=== PATIENT | male | born 1965 | race Caucasian/White ===

== ENCOUNTER 2019-09-02 12:03 | Outpatient (CLI) | payer OTHER, SELFPAY | END 2019-09-02 12:04 | disposition home or self-care (01) | LOC: CHSIMG 12:07 | PROVIDERS: PCP Internal Medicine; Visit Provider Specialist | DX: Z98.890 Other specified postprocedural states (principal) | CPT/HCPCS: 96375; C8929 ==

== ENCOUNTER 2020-02-17 08:26 | Outpatient (CLI) | payer OTHER, SELFPAY ==
[2020-02-17 08:35] LABS: Basophils Absolute Auto 0.07 K/mm3 (0.00-0.10); Basophils Percent Auto 0.7 % (0.0-1.0); Eosinophils Absolute Auto 0.34 K/mm3 (0.02-0.50); Eosinophils Percent Auto 3.2 % (1.0-6.0); Hematocrit 43.2 % (40.0-54.0); Hemoglobin 14.3 g/dL (14.0-18.0); Immature Granulocyte Absolute 0.04 K/mm3 (0.00-0.00); Immature Granulocyte Percent A 0.4 % (0.0-0.0); Lymphocytes Absolute Auto 3.21 K/mm3 (1.10-4.50); Lymphocytes Percent Auto 29.9 % (18.0-42.0); Mean Corpuscular HGB Conc 33.1 g/dL (32.0-36.0); Mean Corpuscular Hemoglobin 29.2 pg (27.0-31.0); Mean Corpuscular Volume 88.3 fL (78.0-102.0); Mean Platelet Volume 10.2 fl (8.7-11.0); Monocytes Absolute Auto 0.65 K/mm3 (0.10-0.90); Monocytes Percent Auto 6.1 % (2.0-11.0); Neutrophils Absolute Auto 6.4 K/mm3 (1.7-7.2); Neutrophils Percent Auto 59.7 % (50.0-70.0); Platelet Count Result 276 K/mm3 (150-420); Red Blood Count 4.89 M/mm3 (4.70-6.10); Red Cell Distribution Width 14.2 % (11.6-14.4); White Blood Count 10.7 K/mm3 (4.8-10.8)
[2020-02-17 10:07] LABS: Anion Gap 9 mmol/L (8-16); Blood Urea Nitrogen 12 mg/dL (7-18); Calcium 8.8 mg/dL (8.5-10.1); Carbon Dioxide 29 mmol/L (21-32); Chloride 103 mmol/L (98-108); Cholesterol 202 mg/dL (0-200); Estimated Glomerular Filt Rate > 60; Glucose 95 mg/dL (70-99); HDL Direct 41 mg/dL (40-60); LDL Cholesterol Calculated 138 mg/dL (<130); Osmolality Calculated 291 mOsm/kg (285-295); Sodium 141 mmol/L (136-145); Triglycerides 117 mg/dL (0-150)
== END 2020-02-17 08:27 | disposition home or self-care (01) ==
PROVIDERS: PCP Internal Medicine; Visit Provider Specialist
DX: E78.5 Hyperlipidemia, unspecified (principal); I10 Essential (primary) hypertension
CPT/HCPCS: 36415; 80048; 80061; 85025

== ENCOUNTER 2020-12-12 08:00 | Outpatient (CLI) | payer BC, SELFPAY ==
--- NOTE | ~2020-12-12 | CT_ITS ---
EXAMINATION: CT abdomen pelvis wo/w con DATE: 12/12/2020 08:35 INDICATION: Chronic bladder TECHNIQUE: Computed tomography (CT) of the abdomen and pelvis was performed without and with 130 cc O mnipaque 350 intravenous contrast. The dose-length product was 871.50 mGy-cm. Automated exposure cont rol and iterative reconstruction technique were employed. COMPARISON: CT dated 01/07/2016. FINDINGS: Lung bases are unremarkable. Heart size normal. No significant pleural or pericardial effus ion. No No significant vascular abnormality. No lymphadenopathy. There is high density debris in the stomach dependently. The liver, spleen, pancreas, adrenal glands and kidneys are unremarkable. Ureters are no rmal in course and caliber. There is diffuse bladder wall thickening. No renal stones. There is depen dent high density material in the bladder precontrast administration which may represent small stones . Gallbladder is present. No lymphadenopathy. Nonobstructive bowel gas pattern. No abnormal pelvic ma sses or fluid collections. No free air or free fluid. IMPRESSION: 1. High density material dependent aspect the bladder on precontrast sequence, possibly small stones. 2: Diffuse bladder wall thickening suspicious for chronic cystitis. Reviewed, dictated and finalized at location A.
== END 2020-12-12 08:01 | disposition home or self-care (01) ==
LOC: ANHIMG 08:03
PROVIDERS: PCP Internal Medicine; Visit Provider Urology
DX: R10.9 Unspecified abdominal pain (principal)
CPT/HCPCS: 74178; Q9967

== ENCOUNTER 2021-10-19 15:17 | Outpatient (CLI) | payer BC, SELFPAY ==
--- NOTE | ~2021-10-19 | CT_ITS ---
EXAMINATION:CT lung screening DATE: 10/19/2021 15:31 INDICATION: Personal history of tobacco dependence. Current smoker with 30 pack year history. TECHNIQUE: Computed tomography (CT) of the chest was performed without intravenous contrast. Automate d exposure control and iterative reconstruction technique were employed. The dose-length product (DLP ) was 186.97 mGy-cm. COMPARISON: Chest CT 12/31/2015 FINDINGS: There is mild scarring at the lung apices. There is mild emphysema. There is mild atelectas is bilaterally. No pleural effusion. The heart size is normal. There is a closure device of the inter atrial septum. No pericardial effusion. There is mild thoracic spondylosis. There is mild chronic ant erior wedging of multiple vertebral bodies. IMPRESSION: 1. Lung-RADS category 2: Benign appearance or behavior. Continue annual screening with noncontrast lo w-dose chest CT in 12 months. Reviewed, dictated and finalized at location B. IMPRESSION: 1. Lung-RADS category 2: Benign appearance or behavior. Continue annual screeni ng with noncontrast low-dose chest CT in 12 months.
== END 2021-10-19 15:18 | disposition home or self-care (01) ==
LOC: CHSIMG 15:18
PROVIDERS: PCP Internal Medicine; Visit Provider Internal Medicine
DX: Z87.891 Personal history of nicotine dependence (principal)
CPT/HCPCS: 71271

== ENCOUNTER 2022-01-04 00:06 | Day surgery (SDC) | payer BC, SELFPAY ==
[2021-12-16 15:06] VITALS: BMI 28.6
[2022-01-04 09:16] VITALS: BP 108/69; PULSE 77; RESP 18; TEMP 36.6; O2SAT 100
[2022-01-04] MEDS: LACTATED RINGERS 1,000 ML 150 ML IV CONT (09:26)
--- NOTE | 2022-01-04 09:39 | P.PNAN_ITS ---
Anes - Initial Pre Proc Eval Procedure: Operation Date: 01/04/22 10:30 Proposed Procedures p Screening Colonoscopy - Ilya Hernández MD Date/Time: 01/04/22 09:39 Surgeon: Ilya Hernández MD Pre Op Diagnosis: positive cologuard Patient Data Age: 56 Gender: M Height: 1.75 m Weight: 83.5 kg Last Vital Signs Temp 97.8 F 01/04/22 09:16 Pulse 77 01/04/22 09:16 Resp 18 01/04/22 09:16 BP 108/69 01/04/22 09:16 Pulse Ox 100 01/04/22 09:16 O2 Del Method Room Air 01/04/22 09:16 Allergies Allergy/AdvReac Type Severity Reaction Status Date / Time diphenhydramine Allergy Mild HEADACHE. Verified 01/04/22 09:15 Home Medications Medication Instructions Recorded Confirmed Type sodium sul 1.479 gram-potas ch See Rx Instructions PO .COMPLEX 11/18/21 01/04/22 Rx 0.188 gram-magnes sul 0.225 gram #24 tabs tablet (Sutab) Adult Low Dose Aspirin 81 mg PO DAILY 12/16/21 12/16/21 History Adults Multivitamin 1 tab-cap PO DAILY 12/16/21 12/16/21 History atorvastatin 40 mg tablet 1 tablet PO DAILY 12/16/21 12/16/21 History lisinopril 20 mg tablet 1 tablet PO DAILY 12/16/21 12/16/21 History tramadol 50 mg tablet 50 tablet PO PRN PRN Pain 12/16/21 12/16/21 History Patient hx anesthesia problems: none Family hx anesthesia problems: none Results Review: All pre-operative results and documents have been reviewed as part of the pre- operative evaluation. [facility] Social History Social History Smoking packs per day: 1.5 Smoking cigarettes per day: 30.0 Years smoked: 30 Smoking pack-years: 45.00 Smoking status: Current every day smoker Tobacco type: cigarettes Alcohol intake: current Alcohol use details: rarely Substance use: never Living arrangements: with family Spiritual care concerns: No Anes - Eval Final PreProcedure Day of Procedure 01/04/22 09:39 Patient weight: normal Heart: regular rate and rhythm Lungs: clear to auscultation Airway: Mallampati scale class II Neurological: alert and oriented Last oral intake: >/= 8 hours ASA classification: II Emergent: no Anesthetic plan: proceed Anesthesia type and monitoring: general GIVS and standard monitoring Results Review: All pre-operative results and documents have been reviewed as part of the pre- operative evaluation. Informed Consent: The patient's anesthetic plan and its attendant risks and benefits were discussed with the patient/family/POA. Questions were solicited and answers provided to the satisfaction of the patient/family/POA.
--- NOTE | 2022-01-04 09:47 | PM.HPGS ---
History of Present Illness History of Present Illness Consent: Risks, benefits, and alternatives have been discussed and questions answered. Patient agrees to proceed with procedure. Chief complaint: positive cologuard Narrative: Bradford Redmond is a 56 year old male here for first colonoscopy, + cologuard Review of Systems Constitutional: Constitutional: Denies headache(s) and Denies weakness Eyes: Eyes: Denies blurry vision ENT: Reports Normal hearing present, Denies headache(s) and Denies neck pain Cardiovascular: Cardiovascular: Denies chest pain and Denies dyspnea Respiratory: Respiratory: Denies dyspnea Gastrointestinal: Gastrointestinal: Reports no additional gastrointestinal complaints Genitourinary: Genitourinary: Denies dysuria Musculoskeletal: Musculoskeletal: Denies neck pain Integumentary/Breasts: Skin/Breast: Denies dry skin Neurologic: Reports Normal hearing present, Denies headache(s) and Denies weakness Psychiatric: Psychiatric: Denies anxiety Endocrine: Endocrine: Denies change in body appearance Hematologic/Lymphatic: Hematologic/Lymphatic: Denies easy bleeding Allergic/Immunologic: Allergic/Immunologic: Denies urticaria PMFSH Past Medical History Medical History (Updated 01/04/22 @ 09:47 by Ilya Hernández MD) Positive colorectal cancer screening using Cologuard test Social History Social History Smoking packs per day: 1.5 Smoking cigarettes per day: 30.0 Years smoked: 30 Smoking pack-years: 45.00 Smoking status: Current every day smoker Tobacco type: cigarettes Alcohol intake: current Alcohol use details: rarely Substance use: never Living arrangements: with family Spiritual care concerns: No Meds Home Medications and Allergies Home Medications Medication Instructions Recorded Confirmed Type sodium sul 1.479 gram-potas See Rx Instructions PO .COMPLEX 11/18/21 01/04/22 Rx 0.188 gram-magnes sul 0.225 gram #24 tabs tablet (Sutab) Adult Low Dose Aspirin 81 mg PO DAILY 12/16/21 12/16/21 History Adults Multivitamin 1 tab-cap PO DAILY 12/16/21 12/16/21 History atorvastatin 40 mg tablet 1 tablet PO DAILY 12/16/21 12/16/21 History lisinopril 20 mg tablet 1 tablet PO DAILY 12/16/21 12/16/21 History tramadol 50 mg tablet 50 tablet PO PRN PRN Pain 12/16/21 12/16/21 History Allergies Allergy/AdvReac Type Severity Reaction Status Date / Time diphenhydramine Allergy Mild HEADACHE. Verified 01/04/22 09:15 Vital Signs Vital Signs - 24 hr 01/04/22 09:16 Temperature 97.8 F Pulse Rate 77 Respiratory Rate 18 Blood Pressure 108/69 Pulse Oximetry 100 Oxygen Delivery Room Air Exam Const: General: comfortable and no acute distress HENMT: General nose exam: Normal nares present Eyes: General: appearance normal, both eyes and all related structures Neck: Neck: no JVD Resp: Auscultation: clear to auscultation bilaterally Cardio: Rate: regular rate Rhythm: regular rhythm GI: Inspection: non-distended GI Palp: Yes Soft to palpation Skin: General skin exam: normal color Neuro: General: gait normal Speech: normal speech Extrem: General: normal to inspection Psych: Mental Status: mental status grossly normal Assessment and Plan Assessment and plan (1) Positive colorectal cancer screening using Cologuard test: Code(s): R19.5 - Other fecal abnormalities Status: Acute Assessment and Plan: colonoscopy
[2022-01-04 10:15] VITALS: BP 94/57; PULSE 57; RESP 15; O2SAT 100
[2022-01-04 10:25] VITALS: BP 115/86; PULSE 52; RESP 20; O2SAT 100
[2022-01-04 10:35] VITALS: BP 106/75; PULSE 51; RESP 17; O2SAT 100
== END 2022-01-04 10:44 | disposition home or self-care (01) ==
PROVIDERS: PCP Internal Medicine; Visit Provider Internal Medicine Gastroenterology
PROC: 0DJD8ZZ Inspection of Lower Intestinal Tract, Via Natural or Artificial Opening Endoscopic (ICD-10-PCS; CPT 45378; principal; 2022-01-04 10:30)
DX: R19.5 Other fecal abnormalities (principal); D12.3 Benign neoplasm of transverse colon; D12.8 Benign neoplasm of rectum; F17.210 Nicotine dependence, cigarettes, uncomplicated; Z79.82 Long term (current) use of aspirin
CPT/HCPCS: 45385; 88305; J2704; J7120

== ENCOUNTER 2022-07-21 08:00 | Outpatient (CLI) | payer BC, SELFPAY ==
--- NOTE | ~2022-07-21 | CT_ITS ---
EXAMINATION: CT sinus wo con DATE: 07/21/2022 08:24 INDICATION: Chronic sinusitis TECHNIQUE: Computed tomography (CT) of the paranasal sinuses was performed without intravenous contra st. The dose-length product (DLP) was 319.20 mGy-cm. Iterative reconstruction was used. COMPARISON: 11/23/2010 FINDINGS: There is normal development and pneumatization of the paranasal sinuses. There is moderate opacification of the ethmoidal air cells. There is minimal opacification of the frontal and sphenoid sinuses. There is moderate opacification of the maxillary sinuses, left greater than right. There is an old blowout fracture in the medial wall of the right orbit. There are surgical changes in the medi al mercedes of the maxillary sinuses. There are 3 mm of rightward deviation of the nasal septum. Visuali zed soft tissues are unremarkable. IMPRESSION: 1. Pansinusitis, worst in the maxillary sinuses and ethmoidal air cells. Reviewed, dictated and finalized at location L. LER RENTAL CLERK
== END 2022-07-21 08:01 | disposition home or self-care (01) ==
LOC: CHSIMG 08:01
PROVIDERS: PCP Internal Medicine; Visit Provider Otolaryngology
DX: J32.4 Chronic pansinusitis (principal)
CPT/HCPCS: 70486

== ENCOUNTER 2024-07-19 13:54 | Outpatient (CLI) | payer OTHER, SELFPAY ==
--- NOTE | ~2024-07-19 | XR_ITS ---
EXAMINATION: XR abdomen obstructive series DATE: 07/19/2024 14:21 INDICATION: Lower abdomen pain TECHNIQUE: Supine and upright views of the abdomen. FINDINGS: No prior studies for comparison. The visualized lung parenchyma is normal.. There is a nonobstructive bowel gas pattern. Gas and stool are seen throughout the colon to the level of the rectum. There is no free air. Moderate colonic fe get loading. IMPRESSION: 1. No acute abdominal abnormality. Reviewed, dictated and finalized at location A. LLER WORKER
[2024-07-19 14:14] LABS: Hematocrit 43.3 % (40.0-54.0); Hemoglobin 14.1 g/dL (14.0-18.0); Mean Corpuscular HGB Conc 32.6 g/dL (32-36); Mean Corpuscular Hemoglobin 27.9 pg (27.0-31.0); Mean Corpuscular Volume 85.6 fL (78.0-102.0); Platelet Count Result 251 K/mm3 (150-420); Red Blood Count 5.06 M/mm3 (4.70-6.10); Red Cell Distribution Width 12.6 % (11.6-14.4); White Blood Count 7.7 K/mm3 (4.8-10.8)
[2024-07-19 14:30] LABS: Alanine Aminotransferase 19 U/L (16-63); Albumin Level 3.5 g/dL (3.4-5.0); Alkaline Phosphatase 114 U/L (46-116); Anion Gap 10 mmol/L (4-12); Aspartate Amino Transferase 13 U/L (15-37); Bilirubin,Total 0.3 mg/dL (0.00-1.00); Blood Urea Nitrogen 7 mg/dL (7-18); Calcium 8.3 mg/dL (8.5-10.1); Carbon Dioxide 27 mmol/L (21-32); Chloride 104 mmol/L (98-108); Estimated Glomerular Filt Rate > 60; Glucose 101 mg/dL (70-99); Osmolality Calculated 290 mOsm/kg (285-295); Potassium 3.6 mmol/L (3.5-5.1); Sodium 141 mmol/L (136-145); Total Protein 7.4 g/dL (6.4-8.2)
== END 2024-07-19 13:55 | disposition home or self-care (01) ==
LOC: CHSIMG 13:58
PROVIDERS: PCP Internal Medicine; Visit Provider Internal Medicine
DX: R10.9 Unspecified abdominal pain (principal); K59.00 Constipation, unspecified
CPT/HCPCS: 36415; 74019; 80053; 85027

== ENCOUNTER 2024-08-28 08:57 | Outpatient (CLI) | payer OTHER, SELFPAY ==
--- NOTE | ~2024-08-28 | XR_ITS ---
EXAMINATION: XR abdomen/kub 1V DATE: 08/28/2024 09:16 INDICATION: Constipation. TECHNIQUE: A supine view of the abdomen on 2 radiographs was obtained. COMPARISON: Abdomen radiographs 07/19/2024, CT abdomen and pelvis 12/12/2020 FINDINGS: There are no dilated loops of bowel. There is a moderate volume of stool in the colon. Ther e are phleboliths in the pelvis. IMPRESSION: 1. Normal bowel gas pattern. Reviewed, dictated and finalized at location B.
--- OUTSIDE RECORDS SUMMARY | 2024-08-28 09:34 | XMS_ITS | Data Portability ---
Author Organization [facility] [employer], Main Office Address [address] [place] [address] Assessment No assessment recorded. Plan of Treatment Reminders Order Date Submit Date Provider Last Modified By Organization Details Last Modified Time Details Appointments None recorded. Lab None recorded. Referral None recorded. Procedures None recorded. Surgeries endoscopy, nasal/sinus , w/ maxillary antrostomy & tissue removal (SURG) 2022 023 [email or web address] Not available 3 14:33:51 endoscopy, nasal/sinus , with frontal sinus exploration (SURG) 2022 023 [email or web address] Not available 3 14:33:51 endoscopy, nasal/sinus , w/ total ethmoidecto my (SURG) 2022 023 [email or web address] Not available 3 14:33:51 Imaging None recorded. Medication Orders None recorded. Patient TargetsNo targets recorded. Patient Instructions Encounter Date Encounter Id Patient Instructions Last Modified By Organization Details Last Modified Time 09/07/2022 [id number] we discussed the options including observation for the use of antibiotics and sinus surgery. Note is made of the previous right medial orbital wall injury [email or web address] Not available 09/07/2022 11:44:52 Reason for Referral None Reported. Results Created Date Observation Date Name Description Value Unit Range Abnormal Flag Note LastModifiedBy Organization Detail LastModifiedTime 07/21/1907/21/2022 CT, sinus es, w/o contr ast No observ ation record ed. [id number] [facility] [address] [place], [address], 08/18/2022 01:49:11 07/29/1907/21/2022 CT, sinus es, w/o contr ast No observ ation record ed. [id number] [facility] [address] [place], [address], 08/18/2022 01:49:11 Result Notes None recorded. Problems Name Problem SNOMED Code Status Onset Date Resolution Date Notes Provider Name and Address Organization Details Recorded Time Chronic sinusitis 26308271 Active 023 Not Available [facility] 01:48:19 Chronic maxillary sinusitis 72433983 Active 023 Ryan Perea MD [address], [place], [address] , [employer] 3 11:44:00 Chronic ethmoidal sinusitis 08169023 Active 023 Ryan Perea MD [address], [place], [address] , [employer] 3 11:44:10 Chronic frontal sinusitis 15334660 Active 023 Ryan Perea MD [address], [place], [address] , [employer] 3 11:44:22 Problem Notes None recorded. Procedures Surgical History None recorded. Imaging Results Imaging Date Name Status LastModified by Organiz ation Details LastModified Time 07/21/2022 CT, sinuses, w/o contrast completed [id number] [facility] [address] [place], [address], 08/18/2022 01:49:11 07/21/2022 CT, sinuses, w/o contrast completed [id number] [facility] [address] [place], [address], 08/18/2022 01:49:11 Procedure Notes None recorded. Medical Equipment None Reported. Allergies No known drug allergies Medications Name Sig Start Date Stop Date Status Note LastModified by Organization Details LastModified Time atorvastatin 40 mg tablet active Not Available Not Available Not Available lisinopril 20 mg tablet 07/19 completed Not Available Not Available Not Available ciprofloxaci n 500 mg tablet 07/19 completed Not Available Not Available Not Available tramadol 50 mg tablet Take 1 tablet every 6 hours by oral route. active Not Available Not Available No t Available triamcinolon e acetonide 0.1 % topical cream 09/01 completed Not Available Not Available Not Available lisinopril 10 mg tablet active Not Available Not Available Not Available methylpredni solone 4 mg tablets in a dose pack 07/19 completed Not Available Not Available Not Available duloxetine 20 mg capsule,kapil yed release 07/19 completed Not Available Not Available Not Available Sutab 1.479-0.188- 0.225 gram tablet 09/01 completed Not Available Not Available Not Available aspirin 81 mg capsule Take 1 capsule every day by oral route. 2022 active Not Available Not Available Not Avai lable 24HR Allergy-Adrian estion Relief 180 mg-240 mg tablet,exten ded release Take 1 tablet every day by oral route. 2022 active Not Available Not Available Not Avai lable Vitals Date Recorded Body mass index (BMI) Body height Body temperature Body weight Provider Name and Address Organization Details Last Updated DateTime 07/19/2022 28.6 kg/m2 175.26 cm 97 [degF] 34713.92 g Not Available [facility] 08/18/2022 01:47:45 Date Recorded Body height Body mass index (BMI) Body weight Body temperature Provider Name and Address Organization Details Last Updated DateTime 09/07/2022 175.26 cm 29.7 kg/m2 58036.07 g 97.8 [degF] Brigitte Booker CMA [facility] 09/07/2022 11:07:10 Social History Question Answer Notes LastModified by Organizat ion Details LastModified Time Tobacco Smoking Status Current Every Day Smoker Not Available [facility] 08/18/2022 01:47:14 What Is Your Level Of Alcohol Consumption? Occasional [id number] Information not available 08/18/2022 Sex: Unknown Functional Status None recorded. Mental Status None recorded. Family History Nothing Reported. Medical History Condition Response SLEEP APNEA N MRSA N ALLERGIES/HAYFEVER N LUNG DISEASE/DISORDER N HISTORY OF DRUG ABUSE N INSOMNIA N COPD N RADIATION / CHEMOTHERAPY N HIGH CHOLESTEROL / HYPERLIPIDEMIA N HYPERTHYROIDISM N BLOOD DISEASES N EAR OR HEARING PROBLEMS N HYPOTHYROIDISM N SHINGLES N DEPRESSION (INCLUDING POST ) N HAVE YOU BEEN HOSPITALIZED OR SEEN IN E ER IN THE PAST YEAR ? N STROKE/TIA N ULCERS N OBESITY N ANEURYSM N HISTORY WITH COMPLICATIONS WITH ANESTHES IA ? N NO SIGNIFICANT PAST MEDICAL HISTORY N USE OF BLOOD THINNERS N DIABETES, TYPE N PARATHYROID DISEASE N ENT N SEASONAL ALLERGIES N HEARTBURN / REFLUX N HEPATITIS / LIVER DISEASE N SLEEP DISORDER N SEIZURES/EPILEPSY N HEADACHES/MIGRAINES N CHF N PACEMAKER N DIZZINESS N HEART DISEASE/HEART PROBLEMS N AIDS/HIV N FRACTURES N HYPERTENSION Y CANCER: SPECIFY N TOURETTE'S N BLOOD TRANSFUSION N ANESTHESIA COMPLICATIONS N ANEMIA/BLOOD DISORDER N CHRONIC EAR INFECTIONS N AUTOIMMUNE DISEASE N TUBERCULOSIS N Past Encounters Encounter ID Performer Location Encounter Start Date Encounter Closed Date Diagnosis/Indication Diagnosis SNOMED-CT Code Diagnosis ICD10 Code Diagnosis Note [id number] [facility] [place] [address] [place] [address] 07/19/2022 00:00:00 07/19/2022 12:06:51 [id number] Ryan Perea MD [facility] [place] [place] [facility] [place] [address] [place] [address] 09/07/2022 10:35:25 09/07/2022 11:49:37 Chronic maxillary sinusitis 27774757 J32.0 Chronic et hmoidal sinusitis 66860465 J32.2 Chronic fr ontal sinusitis 23878065 J32.1 Health Concerns Section Related Observation LastModified by Organization Detai ls LastModified Time None Recorded Concern Status LastModified by Organization Details LastModified Time None Recorded Advance Directives Directive None Recorded Payers Encounter Date Sequence Insurance Name Policy Number Policy Cotton Covered Member ID Cotton Member ID Guarantor Name 09/07/2022 1 [place] [id number] Bradford Redmond [id number] Bradford Redmond Notes Date Note Type Note Provider Name and Address Organization Details Recorded Time 09/07/2022 text/html the CT scan demonstrates postoperative changes including disruption of the right medial orbital wall. He reports that after his last surgery that he had double vision and a black eye on the right. He was admitted for observation. Otherwise the CT scan reveals pansinusitis. Ryan Perea MD [address] [address], [place], [address], [facility] [employer] [facility] 09/07/2022 11:45:27
--- OUTSIDE RECORDS SUMMARY | 2024-08-28 09:34 | XMS_ITS | Encounter Summary ---
Author Organization [facility] Address [facility] [place] [address] Care Team Providers Care Division Plant Engineer Name Role Phone Alton White MD Primary Care Provider [phone] Sigifredo Cifuentes MD Unavailable UnavailAshwin Gomez MD Unavailable Unavailable Myesha Restrepo APRN, RUNWAY MODEL-C Unavailable [phone] Ryan Perea MD Unavailable [phone] Edelmira Kauffman MD Unavailable Encounter Details Date Type Department Care Team (Late st Contact Info) Description 01/14/2016 Abstract [facility] [address] [place] [phone] Abstract, Doc [facility] Social History Tobacco Use Types Packs/Day Years Used Date Smoking Tobacco: Every Day Sex and Gender Information Value Date Recorded Sex Assigned at Not on file Legal Sex Male 1:31 PM CDT Gender Identity Not on file Sexual Orientation Not on file documented as of this encounter Plan of Treatment Upcoming Encounters Date Type Department Care Team (Late st Contact Info) Description 02/24/2025 3:[address] [place] [address] Edelmira Kauffman MD [address] [place] [address] 03/10/2025 3:00 PM CDT Office Visit [facility] [place] [phone] Edelmira Kauffman MD [address] [place] [address] documented as of this encounter Visit Diagnoses Not on filedocumented in this encounter Care Teams Division Plant Engineer Relationship Specialty Start Date End Date Alton White MD [address] [place] [phone] PCP - General INTERNAL MEDICINE 02/18/16 Sigifredo Cifuentes MD [address] [place] [address] [place] [facility] CARDIOVASCULAR DISEASE 02/18/16 10/11/23 Ashwin Caro MD [address] [place] [address] CARDIOVASCULAR DISEASE 04/25/16 10/11/23 Myesha Restrepo, RETAIL BANKER, RUNWAY MODEL-C [address] [facility] [address] [place] [address] NURSE PRACTITIONER 07/13/16 10/11/23 Ryan Perea MD [address] [place] [address] OTOLARYNGOLOGY 01/27/23 Edelmira Kauffman MD [address] [place] [address] Consulting Physician CARDIOVASCULAR DISEASE 10/12/23 documented as of this encounter
--- OUTSIDE RECORDS SUMMARY | 2024-08-28 09:35 | XMS_ITS | Encounter Summary ---
Author Organization [facility] Address [facility] [place] [address] Care Team Providers Care College Teacher Name Role Phone Alton White MD Primary Care Provider [phone] Sigifredo Cifuentes MD Unavailable UnavailAshwin Gomez MD Unavailable Unavailable Myesha Restrepo APRN, BAR MANAGER-C Unavailable [phone] Ryan Perea MD Unavailable [phone] Edelmira Kauffman MD Unavailable Encounter Details Date Type Department Care Team (Late st Contact Info) Description 02/19/2020 Abstract [facility] [address] [place] [phone] Abstract, Doc [facility] Social History Tobacco Use Types Packs/Day Years Used Date Smoking Tobacco: Every Day Cigarettes Smokeless Tobacco: Never Alcohol Use Standard Drinks/Week Comments No 0 (1 standard drink = 0.6 oz pur e alcohol) Sex and Gender Information Value Date Recorded Sex Assigned at Not on file Legal Sex Male 1:31 PM CDT Gender Identity Not on file Sexual Orientation Not on file Occupation Industry Job Start Date Job End Date Not on file Not on file Not on file Not on file documented as of this encounter Plan of Treatment Upcoming Encounters Date Type Department Care Team (Late st Contact Info) Description 02/24/2025 3:[address] [address] [place] [address] Edelmira Kauffman MD [address] [place] [address] 03/10/2025 3:00 PM CDT Office Visit [facility] [address] [place] [phone] Edelmira Kauffman MD [address] [place] [address] documented as of this encounter Procedures Procedure Name Priority Date/Time Associated Diagnosis Comments LIPID PANEL (OUTSIDE LAB) Routine 02/17/2020 CBC W/DIFF AUTOMATED Routine 02/17/2020 documented in this encounter Results * CBC W/DIFF AUTOMATED (02/17/2020) WBC 10.7 RBC 4.89 HGB 14.3 HCT 43.2 MCV 88.3 MCH 29.2 MCHC 33.1 RDW 14.2 PLT 276 MPV 10.2 NEUTROPHILS % 59.7 LYMPHOCYTES % 29.9 MONOCYTES % 6.1 EOSINOPHILS % 3.2 BASOPHILS % 0.7 ABS. NEUTROPHILS 6.4 ABS. LYMPHOCYTES 3.21 ABS. MONOCYTES 0.65 ABS. BASOPHILS 0.07 02/17/2020 us Doc [facility] Abstract LABORATORY Final Result * LIPID PANEL (OUTSIDE LAB) (02/17/2020) CHOLESTEROL 202 TRIGLYCERIDES 117 HDL 41 LDL (CALCULATED) 138 02/17/2020 us Doc [facility] Abstract LAB-OUTSIDE/ABSTRACTED Final Result documented in this encounter Visit Diagnoses Not on filedocumented in this encounter Care Teams College Teacher Relationship Specialty Start Date End Date Alton White MD [address] [place] [phone] PCP - General INTERNAL MEDICINE 02/18/16 Sigifredo Cifuentes MD [address] [place] [address] [facility] [employer] CARDIOVASCULAR DISEASE 02/18/16 10/11/23 Ashwin Caro MD [address] [place] [address] CARDIOVASCULAR DISEASE 04/25/16 10/11/23 Myesha Restrepo, PHOTOGRAPHIC LITHOGRAPHER, BAR MANAGER-C [address] [facility] [address] [place] [address] NURSE PRACTITIONER 07/13/16 10/11/23 Ryan Perea MD [address] [place] [address] OTOLARYNGOLOGY 01/27/23 Edelmira Kauffman MD [address] [place] [address] Consulting Physician CARDIOVASCULAR DISEASE 10/12/23 documented as of this encounter
--- OUTSIDE RECORDS SUMMARY | 2024-08-28 09:35 | XMS_ITS | Encounter Summary ---
Author Organization [facility] Address [facility] [place] [address] Care Team Providers Care Shrimp Trawler Captain Name Role Phone Alton White MD Primary Care Provider [phone] Sigifredo Cifuentes MD Unavailable Unavailabl Ashwin Mak MD Unavailable Unavailable Myesha Restrepo APRN, WINDOW SYSTEMS ADMINISTRATOR-C Unavailable [phone] Ryan Perea MD Unavailable [phone] Edelmira Kauffman MD Unavailable Encounter Details Date Type Department Care Team (Late st Contact Info) Description 09/02/2017 Abstract [facility] [address] [place] [address] , Generic ConversionMD Social History Tobacco Use Types Packs/Day Years [...] 02/24/2025 3:[address] [place] [address] Edelmira Kauffman MD [address] [place] [address] 03/10/2025 3:00 PM CDT Office Visit [facility] [place] [address] Edelmira Kauffman MD [address] [place], [place] [address] documented as of this encounter Visit Diagnoses Not on filedocumented in this encounter Care Teams Shrimp Trawler Captain Relationship Specialty Start Date End Date Alton White MD [address] [place] [address] PCP - General INTERNAL MEDICINE 02/18/16 Sigifredo Cifuentes MD [address] [place] [address] [employer] Digital Sales Assistant CARDIOVASCULAR DISEASE 02/18/16 10/11/23 Ashwin Caro MD [address] [place] [address] CARDIOVASCULAR DISEASE 04/25/16 10/11/23 Myesha Restrepo, NENA, WINDOW SYSTEMS ADMINISTRATOR-C [address] [facility] [address] [place] [address] NURSE PRACTITIONER 07/13/16 10/11/23 Ryan Perea MD [address] [place] [address] OTOLARYNGOLOGY 01/27/23 Edelmira Kauffman MD [address] [place] [address] Consulting Physician CARDIOVASCULAR DISEASE 10/12/23 documented as of this encounter
== END 2024-08-28 08:58 | disposition home or self-care (01) ==
LOC: CHSIMG 08:58
PROVIDERS: PCP Internal Medicine; Visit Provider Nurse Practitioner Family
DX: K59.00 Constipation, unspecified (principal)
CPT/HCPCS: 74018

== ENCOUNTER 2024-09-05 08:31 | Outpatient (CLI) | payer OTHER, SELFPAY ==
--- NOTE | ~2024-09-05 | CT_ITS ---
CT Scan of the Chest without Contrast: Clinical Indication: Lung cancer screening, nicotine dependence Technique: Contiguous sections were acquired throughout the chest without intravenous contrast. Dose reduction technique was used on this scan by utilizing automated exposure control and iterative recon struction technique. The dose-length product (DLP) was 95.83 mGy-cm. COMPARISON: 10/19/2021 Findings: There is no evidence of any significant mediastinal, hilar or axillary lymphadenopathy. The mediastin al soft tissues appear normal. There is no evidence of pleural or pericardial effusion. There is mild emphysema with mild biapical scarring. No pulmonary nodule evident. Images through the upper abdomen reveal no abnormalities. Impression: Lung RADS 1: Negative. 12 month follow-up screening CT advised. Reviewed, dictated and finalized at location . Impression: Lung RADS 1: Negative. 12 month follow-up screening CT advised.
--- OUTSIDE RECORDS SUMMARY | 2024-09-05 08:38 | XMS_ITS | Clinical Summary ---
Author Organization [facility] Address [facility] [place] [address] Care Team Providers Care Checker Cashier Name Role Phone Alton White MD Primary Care Provider [phone] Ryan Perea MD Unavailable [phone] Edelmira Kauffman MD Unavailable Allergies Active Allergy Reactions Criticality Noted Date Comments Pravastatin Dizziness 01/14/2016 Medications traMADol 50 MG tablet Take 1 tablet (50 mg total) by mouth 4 (four) times daily. Active fexofenadine (ZACK) 180 MG tablet Take 1 tablet (180 mg total) by mouth daily. Active aspirin EC (ECOTRIN) 81 MG tablet Take 1 tablet (81 mg total) by mouth daily. Active atorvastatin (LIPITOR) 40 MG tablet TAKE 1 TABLET (40 MG TOTAL) BY MOUTH NIGHTLY AT BEDTIME. 90 tablet 3 01/19/2023 Active Active Problems Problem Noted Date Diagnosed Date Nonrheumatic aortic valve insufficiency 03/02/20 20 Hypertension 03/02/2020 Status post device closure of ASD 06/02/2016 Current smoker 06/02/2016 Dyspnea on exertion 04/25/2016 ASD (atrial septal defect) ([facility]) 03/19/2016 Hyperlipidemia 03/19/2016 Family History Medical History Relation Comments Cancer Father Stroke Maternal Grandmother Stroke Mother Relation Status Comments Father Lung cancer Maternal Grandfather Maternal Grandmother Mother Alive HTN, arthritis Paternal Grandfather Paternal Grandmother Sister Alive Social History Tobacco Use Types Packs/Day Years Used Date Smoking Tobacco: Every Day Cigarettes Smokeless Tobacco: Never Tobacco Cessation:Ready to Q uit: Not Asked; Counseling Given: Not Answered Alcohol Use Standard Drinks/Week Comments No 0 [...] file Not on file Not on file Last Filed Vital Signs Vital Sign Reading Time Taken Comments Blood Pressure 136/84 02/09/2024 1:55 PM CDT Pulse 63 02/09/2024 1:55 PM CDT Temperature - - Respiratory Rate 16 02/09/2024 1:55 PM CDT Oxygen Saturation 100% 02/09/2024 1:55 PM CDT Inhaled Oxygen Concentration - - Weight 83.9 kg (185 lb) 02/09/2024 1:55 PM CDT Height 180.3 cm (5' 11 ) 02/09/2024 1:55 PM CDT Body Mass Index 25.8 02/09/2024 1:55 PM CDT Plan of Treatment Upcoming Encounters Date Type Department Care Team (Late st Contact Info) Description 02/24/2025 3:00 PM CDT Appointment [facility] [place] [address] Edelmira Kauffman MD [address] [place], [place] [id number] 03/10/2025 3:00 PM CDT Office Visit [facility] [address] [place] [address] Edelmira Kauffman MD [address] [place] [address] Health Maintenance Due Date Last Done Comments Colorectal Cancer Screening Colonoscopy (10 Years) 1967 Annual Physical 09/10/1970 Pneumococcal Vaccine: Pediat rics (0 to 5 Years) and At-Risk Patients (6 to 64 Years) (1 of 2 - PCV) 09/10/1973 Hepatitis C 09/10/1985 DTaP, Tdap and Td Vaccines ( 1 - Tdap) 09/10/1986 Hepatitis B Vaccines (1 of 3 - 19+ 3-dose series) 09/10/1986 Zoster Vaccines (1 of 2) 09/10/2017 COVID-19 Vaccine (1 - 2023-2 5 season) 2024 Influenza Adult (#1) 2024 Meningococcal B Vaccine Aged Out No l onger eligible based on patient's age to complete this topic Meningococcal Vaccine Aged Out No mary kay ted eligible based on patient's age to complete this topic RSV Immunizations Under 20 Months Aged Out No longer eligible based on patient's age to complete this topic Insurance [facility] AETNA Care Teams Checker Cashier Relationship Specialty Start Date End Date Alton White MD [address] [place] [address] PCP - General INTERNAL MEDICINE 02/18/16 Ryan Perea MD [address] [place] [address] OTOLARYNGOLOGY 01/27/23 Edelmira Kauffman MD [address] [place], [place] [address] Consulting Physician CARDIOVASCULAR DISEASE 10/12/23
--- OUTSIDE RECORDS SUMMARY | 2024-09-05 08:38 | XMS_ITS | Data Portability ---
Author Organization [facility], Main Office Address [address] [place] [address] Assessment No assessment recorded. Plan of Treatment [...] By Organization Details Last Modified Time 09/07/2022 [id number] we discussed the options including observation for [...] contr ast No observ ation record ed. [id number] [facility] [address] [place], [address], 08/18/2022 01:49:11 07/29/1907/21/2022 CT, sinus es, w/o contr ast No observ ation record ed. [id number] [facility] [address] [place], [address], 08/18/2022 01:49:11 Result Notes None recorded. Problems Name Problem SNOMED Code Status Onset Date Resolution Date Notes Provider Name and Address Organization Details Recorded Time Chronic sinusitis 47998434 Active 023 Not Available [facility] 3 01:48:19 Chronic maxillary sinusitis 68949025 Active 023 Ryan Perea MD [address], [place], [address] , [facility] 3 11:44:00 Chronic ethmoidal sinusitis 06590412 Active 023 Ryan Perea MD [address], [place], [address] , [facility] 3 11:44:10 Chronic frontal sinusitis 93016750 Active 023 Ryan Perea MD [address], [place], [address] , [facility] 3 11:44:22 Problem Notes None recorded. Procedures Surgical History None recorded. Imaging Results Imaging Date Name Status LastModified by Organiz ation Details LastModified Time 07/21/2022 CT, sinuses, w/o contrast completed [id number] [facility] [address] [place], [address], 08/18/2022 01:49:11 07/21/2022 CT, sinuses, w/o contrast completed [id number] [facility] [address] [place], [address], 08/18/2022 01:49:11 Procedure Notes None recorded. Medical [...] 07/19/2022 28.6 kg/m2 175.26 cm 97 [degF] 15206.92 g Not Available [facility] 08/18/2022 01:47:45 Date Recorded Body height Body mass index (BMI) Body weight Body temperature Provider Name and Address Organization Details Last Updated DateTime 09/07/2022 175.26 cm 29.7 kg/m2 57629.07 g 97.8 [degF] Briigtte Booker CMA [place] [facility] 09/07/2022 11:07:10 Social History Question Answer Notes LastModified by Organizat ion Details LastModified Time Tobacco Smoking Status Current Every Day Smoker Not Available [facility] 08/18/2022 01:47:14 What Is Your Level Of Alcohol Consumption? Occasional [id number] Information not available 08/18/2022 Sex: Unknown [...] SNOMED-CT Code Diagnosis ICD10 Code Diagnosis Note [id number] [facility] [place] [address] [place] [address] 07/19/2022 00:00:00 07/19/2022 12:06:51 [id number] Ryan Perea MD [facility] [place] [address] [place] [address] 09/07/2022 10:35:25 09/07/2022 11:49:37 Chronic maxillary sinusitis 70334708 J32.0 Chronic et hmoidal sinusitis 18130803 J32.2 Chronic fr ontal sinusitis 88970103 J32.1 Health Concerns Section Related Observation LastModified by Organization Detai ls LastModified Time None Recorded Concern Status LastModified by Organization Details LastModified Time None Recorded Advance Directives Directive None Recorded Payers Encounter Date Sequence Insurance Name Policy Number Policy Cotton Covered Member ID Cotton Member ID Guarantor Name 09/07/2022 1 [place] [id number] Bradford Redmond [id number] Bradford Redmond Notes Date Note Type [...] scan reveals pansinusitis. Ryan Perea MD [address] [address], [place], [address], [facility] [place] [employer] [facility] 09/07/2022 11:45:27
--- OUTSIDE RECORDS SUMMARY | 2024-09-05 08:38 | XMS_ITS | Encounter Summary ---
Author Organization [facility] Address [facility] [place] [address] Care Team Providers Care Buffer Chrome Name Role Phone Alton White MD Primary Care Provider [phone] Sigifredo Cifuentes MD Unavailable UnavailAshwin Gomez MD Unavailable Unavailable Myesha Restrepo APRN, AUTOMATION/CONTROLS MANAGER-C Unavailable Ryan Perea MD Unavailable [phone] Edelmira Kauffman MD Unavailable Encounter Details Date Type Department Care Team (Late st Contact Info) Description 01/14/2016 Abstract [facility] [address] [place] [phone] Abstract, Doc [facility] Social History Tobacco Use [...] 3:[address] [place] [address] Edelmira Kauffman MD [address] [place] [address] 03/10/2025 3:00 PM CDT Office Visit [facility] [place] [address] Edelmira Kauffman MD [address] [place] [address] documented as of this encounter Visit Diagnoses Not on filedocumented in this encounter Care Teams Buffer Chrome Relationship Specialty Start Date End Date Alton White MD [address] [place] [address] PCP - General INTERNAL MEDICINE 02/18/16 Sigifredo Cifuentes MD [address] [place] [address] [place] Wireless Network Engineer CARDIOVASCULAR DISEASE 02/18/16 10/11/23 Ashwin Caro MD [address] [place] [address] CARDIOVASCULAR DISEASE 04/25/16 10/11/23 Myesha Restrepo, ONLINE MERCHANDISING SPECIALIST, AUTOMATION/CONTROLS MANAGER-C [address] [facility] [address] [place] [address] NURSE PRACTITIONER 07/13/16 10/11/23 Ryan Perea MD [address] [place] [address] OTOLARYNGOLOGY 01/27/23 Edelmira Kauffman MD [address] [place] [address] Consulting Physician CARDIOVASCULAR DISEASE 10/12/23 documented as of this encounter
--- OUTSIDE RECORDS SUMMARY | 2024-09-05 08:39 | XMS_ITS | Encounter Summary ---
Author Organization [facility] Address [facility] [place] [address] Care Team Providers Care Flame Cutter Name Role Phone Alton White MD Primary Care Provider [phone] Sigifredo Cifuentes MD Unavailable Unavailabl Ashwin Mak MD Unavailable Unavailable Myesha Restrepo APRN, FIBER OPTIC SPLICER-C Unavailable [phone] Ryan Perea MD Unavailable [phone] Edelmira Kauffman MD Unavailable Encounter Details Date Type Department Care Team (Late st Contact Info) Description 09/02/2017 Abstract [facility] [address] [place] [address] , Generic ConversionMD Social History [...] 02/24/2025 3:[address] [place] [address] Edelmira Kauffman MD [address] [place] [address] 03/10/2025 3:00 PM CDT Office Visit [facility] [place] [address] Edelmira Kauffman MD [address] [place], [place] [address] documented as of this encounter Visit Diagnoses Not on filedocumented in this encounter Care Teams Flame Cutter Relationship Specialty Start Date End Date Alton White MD [address] [place] [address] PCP - General INTERNAL MEDICINE 02/18/16 Sigifredo Cifuentes MD [address] [place] [address] [place] Dye Machine Tender CARDIOVASCULAR DISEASE 02/18/16 10/11/23 Ashwin Caro MD [address] [place] [address] CARDIOVASCULAR DISEASE 04/25/16 10/11/23 Myesha Restrepo, NENA, FIBER OPTIC SPLICER-C [address] [facility] [address] [place] [address] NURSE PRACTITIONER 07/13/16 10/11/23 Ryan Perea MD [address] [place] [address] OTOLARYNGOLOGY 01/27/23 Edelmira Kauffman MD [address] [place] [address] Consulting Physician CARDIOVASCULAR DISEASE 10/12/23 documented as of this encounter
--- OUTSIDE RECORDS SUMMARY | 2024-09-05 08:39 | XMS_ITS | Encounter Summary ---
Author Organization [facility] Address [facility] [place] [address] Care Team Providers Care Drum Tender Name Role Phone Alton White MD Primary Care Provider [phone] Sigifredo Cifuentes MD Unavailable UnavailAshwin Gomez MD Unavailable Unavailable Myesha Restrepo APRN, CABLE ARMORER-C Unavailable [phone] Ryan Perea MD Unavailable [phone] Edelmira Kauffman MD Unavailable Encounter Details Date Type Department Care Team (Late st Contact Info) Description 02/19/2020 Abstract [facility] [address] [place] [phone] Abstract, Doc [facility] Social History Tobacco Use [...] CDT Appointment [facility] [address] [place] [address] Edelmira Kauffman MD [address] [place] [address] 03/10/2025 3:00 PM CDT Office Visit [facility] [address] [place] [address] Edelmira Kauffman MD [address] [place] [address] documented as of this encounter Procedures Procedure [...] on filedocumented in this encounter Care Teams Drum Tender Relationship Specialty Start Date End Date Alton White MD [address] [place] [address] PCP - General INTERNAL MEDICINE 02/18/16 Sigifredo Cifuentes MD [address] [place] [address] [place] Marking Machine Tender CARDIOVASCULAR DISEASE 02/18/16 10/11/23 Ashwin Caro MD [address] [place] [address] CARDIOVASCULAR DISEASE 04/25/16 10/11/23 Myesha Restrepo, INTERIOR BLOCK WIRER, CABLE ARMORER-C [address] [facility] [address] [place] [address] NURSE PRACTITIONER 07/13/16 10/11/23 Ryan Perea MD [address] [place] [address] OTOLARYNGOLOGY 01/27/23 Edelmira Kauffman MD [address] [place] [address] Consulting Physician CARDIOVASCULAR DISEASE 10/12/23 documented as of this encounter
== END 2024-09-05 08:32 | disposition home or self-care (01) ==
LOC: CHSIMG 08:32
PROVIDERS: PCP Internal Medicine; Visit Provider Internal Medicine
DX: Z12.2 Encounter for screening for malignant neoplasm of respiratory organs (principal); Z87.891 Personal history of nicotine dependence
CPT/HCPCS: 71271

== ENCOUNTER 2024-12-11 16:03 | Outpatient (CLI) | payer OTHER, SELFPAY ==
--- NOTE | ~2024-12-11 | XR_ITS ---
HISTORY: R shoulder pain COMPARISON: None TECHNIQUE: 2 views of the right shoulder were performed FINDINGS: No acute fracture. The glenohumeral and acromioclavicular joint space is maintained The visualized portion of the adjacent right lung is clear. The humeral head is well seated within the glenoid fossa. IMPRESSION: No acute fracture or anterior dislocation. Reviewed, dictated and finalized at location A.
== END 2024-12-11 16:04 | disposition home or self-care (01) ==
LOC: CHSIMG 16:05
PROVIDERS: PCP Internal Medicine; Visit Provider Internal Medicine
DX: M25.511 Pain in right shoulder (principal)
CPT/HCPCS: 73030

== ENCOUNTER 2025-03-08 08:13 | Outpatient (CLI) | payer OTHER, SELFPAY ==
--- NOTE | ~2025-03-08 | MR_ITS ---
EXAMINATION: MR shoulder RT wo con DATE: 03/08/2025 09:06 INDICATION: Right shoulder pain. TECHNIQUE: Magnetic resonance imaging (MRI) of the right shoulder was performed without intravenous contrast. Sequences included axial PD-weighted FS FSE, coronal oblique PD-weighted FS FSE and T2-weighted FS FSE, and sagittal oblique T2-weighted FS FSE and T1-weighted FSE. COMPARISON: Right shoulder radiographs 12/11/2024 FINDINGS: Coracoacromial arch: The acromion undersurface is flat in morphology (type I). There is moderate acromioclavicular joint osteoarthritis. There is mild subacromial/subdeltoid bursitis. Rotator cuff: There is a bursal-sided partial-thickness tear of anterior supraspinatus tendon measuring 12 mm anterior to posterior by 6 mm proximal to distal by 70% tendon thickness. There is mild infraspinatus tendinopathy. Teres minor tendon is normal. There is mild subscapularis tendinopathy. There is no asymmetric fatty atrophy of the rotator cuff muscle bellies. Biceps tendon and glenoid labrum: Biceps tendon is in bicipital groove. Intra-articular biceps tendon is normal. The glenoid labrum is normal. Fluid: There is no glenohumeral joint effusion. Bones/cartilage: The glenoid cartilage is normal. Humeral head cartilage is normal. IMPRESSION: 1. Partial-thickness rotator cuff tear. 2. Moderate acromioclavicular joint osteoarthritis. 3. Mild subacromial/subdeltoid bursitis. Reviewed, dictated and finalized at location E.
== END 2025-03-08 08:14 | disposition home or self-care (01) ==
LOC: CHSIMG 08:15
PROVIDERS: PCP Internal Medicine; Visit Provider Internal Medicine
DX: M75.111 Incomplete rotator cuff tear or rupture of right shoulder, not specified as traumatic (principal); M19.011 Primary osteoarthritis, right shoulder; M75.51 Bursitis of right shoulder
CPT/HCPCS: 73221

== ENCOUNTER 2025-04-01 08:02 | Outpatient (CLI) | payer OTHER, SELFPAY ==
--- NOTE | ~2025-04-01 | XR_ITS ---
EXAMINATION: XR chest 2V, 04/01/2025 8:00 CDT HISTORY: Sinusitis, Chronic COMPARISON: No comparisons available. Technique: 2 views obtained. Findings: The lungs are clear, no effusion. No pneumothorax. Heart is normal size. Mediastinal and hilar contours are within normal limits. Bony thorax no acute abnormality. Impression: No acute cardiopulmonary abnormality. Reviewed, dictated and finalized at location P. Impression: No acute cardiopulmonary abnormality.
== END 2025-04-01 08:03 | disposition home or self-care (01) ==
LOC: CHSIMG 08:07
PROVIDERS: PCP Internal Medicine
DX: J32.9 Chronic sinusitis, unspecified (principal)
CPT/HCPCS: 71046